=== PATIENT | female | born 1955 | race African-American/Black ===

== ENCOUNTER → 2020-07-22 | Day surgery (SDC) | payer BC | END | disposition home or self-care (01) | LOC: JRADIR 10:29 | PROVIDERS: ATTEND Internal Medicine Endocrinology, Diabetes & Metabolism | PROC: 0G9G3ZX Drainage of Left Thyroid Gland Lobe, Percutaneous Approach, Diagnostic (ICD-10-PCS; principal; 2020-07-22) | DX: E04.1 Nontoxic single thyroid nodule (principal) | CPT/HCPCS: 76942; 88173; 88305-TC ==